=== PATIENT | male | born 1950 ===

== ENCOUNTER 2019-07-22 05:17 | Day surgery (SDC) | payer MEDICARE, MEDICAID ==
--- NOTE | 2019-07-21 16:00 | Pre-op HX & Phy Repo 2 SIG ---
DATE OF ADMISSION: 07/22/2019 DATE OF SURGERY: 07/22/2019 PREOPERATIVE DIAGNOSIS: Dislocated intraocular lens, right eye. BRIEF NOTE: This is the first [place] retinal surgery admission for the patient, who is a very nice 69-year-old gentleman, complained of poor vision in the right eye after cataract surgery. He had surgery done on the right eye in May of 2019. Subsequent to this, he noted the following vision, was found to have a dislocated intraocular lens. He is admitted for removal of the lens and placement of a secondary lens implant. PAST OCULAR HISTORY: Otherwise negative except for cataract surgery on the left eye in 2016. PAST MEDICAL HISTORY: Remarkable for diabetes for roughly 20 years. MEDICATIONS: He is on oral medications for his diabetes. ALLERGIES: He has no known allergies. PHYSICAL EXAMINATION: Best vision at the time of admission was 20/70 with correction in the right eye 20/30 in the left with pressures of 17 and 16. Confrontation terrazas were full. The anterior segment on the right showed aphakia with a dislocated lens. On the left, a posterior chamber lens was seen, well positioned in the capsular bag. Fundus examination of the right eye showed a dislocated lens located inferiorly, the macula appeared benign. The left fundus was benign. ASSESSMENT: 1. Dislocated intraocular lens, right eye. 2. Pseudophakia, left eye. PLAN: The plan is to perform a pars plana vitrectomy with retrieval and subsequent removal of the dislocated lens and later placement of a secondary lens implant. The risks and benefits of surgery were gone over with the patient with potential for potential for infection, hemorrhage, retinal detachment, remote possibility of loss of the eye. The risk of anesthesia was discussed. The patient understands and consents to the surgery, which will be performed on tomorrow morning. Elie Corado M.D. DR: BRIANA JOB#: [id number] CC:
[2019-07-22] VITALS (10 sets, daily range): BP systolic 119–151; BP diastolic 62–75
[~2019-07-22] VITALS: Ht 165.1 cm; Wt 70.3 kg
[~2019-07-22 05:17] MED LIST: Cyclopentolate 1% Opth Sol 2ml RIGHT EYE SCH; Flurbiprofen 0.03% Opth Sol 2.5ml RIGHT EYE SCH; Phenylephrine 2.5% Op 2ml Soln RIGHT EYE SCH; Pred Forte 1% Opth Susp 1ml RIGHT EYE SCH; Vigamox Opth Soln 3ml RIGHT EYE SCH
[2019-07-22] MEDS ORDERED: Vigamox Opth Soln 3ml ONE (05:28)
[2019-07-22] MEDS ORDERED: Phenylephrine 2.5% Op 2ml Soln ONE (05:28)
[2019-07-22] MEDS ORDERED: Flurbiprofen 0.03% Opth Sol 2.5ml ONE (05:28)
[2019-07-22] MEDS ORDERED: Cyclopentolate 1% Opth Sol 2ml ONE (05:28)
[2019-07-22] MEDS: Phenylephrine 2.5% Op 2ml Soln RIGHT EYE SCH ×3 (05:51→06:17)
[2019-07-22] MEDS: Cyclopentolate 1% Opth Sol 2ml RIGHT EYE SCH ×3 (05:51→06:17)
[2019-07-22] MEDS: Vigamox Opth Soln 3ml RIGHT EYE SCH ×3 (05:51→06:17)
[2019-07-22] MEDS: Flurbiprofen 0.03% Opth Sol 2.5ml RIGHT EYE SCH ×3 (05:51→06:17)
[2019-07-22 06:02] LABS: BASOPHILS % (AUTO) 1.2 % (0.0-2.0); EOSINOPHILS % (AUTO) 1.4 % (0.0-3.0); HEMATOCRIT 46.8 % (42.0-52.0); LYMPHOCYTES % (AUTO) 47.2 % (20.0-45.0); MEAN CORPUSCULAR VOLUME 88 FL (80-99); NEUTROPHILS % (AUTO) 42.2 % (45.0-75.0); PLATELET COUNT 247 K/UL (150-450); RED CELL DISTRIBUTION WIDTH 11.7 % (11.6-14.8); WHITE BLOOD COUNT 5.1 K/UL (4.8-10.8)
[2019-07-22] MEDS ORDERED: NOVOLIN R100 UNIT/1 SUBQ (06:04)
[2019-07-22 06:14] LABS: ANION GAP 8 mmol/L (5-15); BLOOD UREA NITROGEN 20 mg/dL (7-18); CALCIUM 9.4 MG/DL (8.5-10.1); CARBON DIOXIDE 28 MMOL/L (21-32); CHLORIDE 107 MMOL/L (98-107); CREATININE 0.8 MG/DL (0.55-1.30); POTASSIUM 3.6 MMOL/L (3.5-5.1); SODIUM 143 MMOL/L (136-145)
[2019-07-22] MEDS ORDERED: Polysporin Opth Oint 3.5gm ONE (07:06)
[2019-07-22] MEDS ORDERED: Lidocaine 2% MPF 5ml Vial INJ ONE (07:06)
[2019-07-22] MEDS ORDERED: EPINEPHrine 1mg/1ml Amp ONE ×2 (07:06→08:06)
[2019-07-22] MEDS ORDERED: Kenalog-40 1ml Vial ONE (07:06)
[2019-07-22] MEDS ORDERED: Povidone-Iodine 5% opth solution ONE (07:07)
[2019-07-22] MEDS ORDERED: Dexamethasone 4mg/ml vial ONE (07:07)
[2019-07-22] MEDS ORDERED: BSS 15ml BTL ONE (07:07)
[2019-07-22] MEDS ORDERED: BSS 500ml btl ONE ×2 (07:07→08:06)
[2019-07-22] MEDS ORDERED: Tetracaine 0.5% Opth 4ml Soln ONE (07:07)
[2019-07-22] MEDS ORDERED: Bupivacaine 0.75% 30ml vial INJ ONE (07:08)
[2019-07-22] MEDS ORDERED: Sodium Hyaluronate 10 mg/ml 0.85ml ONE (07:08)
[2019-07-22] MEDS ORDERED: Pred Forte 1% Opth Susp 1ml ONE (07:09)
[2019-07-22] MEDS ORDERED: Acetylcholine Injection (OR) ONE (07:23)
--- NOTE | 2019-07-22 07:26 | Anethesia Preoperative Eval ---
Anesthesia Pre-op PMH/ROS General Date of Evaluation: Jul 22, 2019 Anesthesiologist: ata ASA Score: ASA 2 Mallampati Score Class I : Soft palate, uvula, fauces, pillars visible Class II: Soft palate, uvula, fauces visible Class III: Soft palate, base of uvula visible Class IV: Only hard plate visible Mallampati Classification: Class II Diagnosis: dislocated R IOL Surgical Procedure: R eye PPV, removal of dislocated IOL, Implant secondary Anesthesia History: none Family History: no anesthesia problems Allergies: Coded Allergies: No Known Allergies (Unverified , 07/14/19) Medications: see eMAR Patient NPO?: Yes NPO Date: Jul 21, 2019 NPO Time: 20:00 Past Medical History Endocrine: Reports: DM PSxH Narrative: B cataract sx Anesthesia Pre-op Phys. Exam Physician Exam Last Vital Signs Date Time Temp Pulse Resp B/P (MAP) Pulse Ox O2 Delivery O2 Flow Rate FiO2 07/22/19 06:00 Room Air 07/22/19 05:58 97.8 66 18 151/75 98 Constitutional: NAD Cardiovascular: RRR Respiratory: CTA Gastrointestinal: S/NT/ND Airway Exam Mallampati Score: Class II MO: full Teeth: missing, broken Anesthesia Pre-op A/P Labs Hematology Test 07/22/19 05:45 White Blood Count 5.1 K/UL (4.8-10.8) Red Blood Count 5.30 M/UL (4.70-6.10) Hemoglobin 16.0 G/DL (14.2-18.0) Hematocrit 46.8 % (42.0-52.0) Mean Corpuscular Volume 88 FL (80-99) Mean Corpuscular Hemoglobin 30.1 PG (27.0-31.0) Mean Corpuscular Hemoglobin Concent 34.1 G/DL (32.0-36.0) Red Cell Distribution Width 11.7 % (11.6-14.8) Platelet Count 247 K/UL (150-450) Mean Platelet Volume 7.1 FL (6.5-10.1) Neutrophils (%) (Auto) 42.2 % (45.0-75.0) L Lymphocytes (%) (Auto) 47.2 % (20.0-45.0) H Monocytes (%) (Auto) 8.0 % (1.0-10.0) Eosinophils (%) (Auto) 1.4 % (0.0-3.0) Basophils (%) (Auto) 1.2 % (0.0-2.0) Chemistry Test 07/22/19 05:45 Sodium Level 143 MMOL/L (136-145) Potassium Level 3.6 MMOL/L (3.5-5.1) Chloride Level 107 MMOL/L (98-107) Carbon Dioxide Level 28 MMOL/L (21-32) Anion Gap 8 mmol/L (5-15) Blood Urea Nitrogen 20 mg/dL (7-18) H Creatinine 0.8 MG/DL (0.55-1.30) Estimat Glomerular Filtration Rate > 60 mL/min (>60) Glucose Level 105 MG/DL (74-106) Calcium Level 9.4 MG/DL (8.5-10.1) Accucheck 100 Studies Pre-op Studies: EKG - NSR Risk Assessment & Plan Assessment: ASA 2 Plan: GA Status Change Before Surgery: Kirsty Meyers M.D. Jul 22, 2019 07:26
[2019-07-22] MEDS ORDERED: LR 1000ml ONE (07:30)
[2019-07-22] MEDS ORDERED: Sterile Water Irrig 1000ml IRRIG ONE (07:30)
[2019-07-22] MEDS ORDERED: ePHEDrine 50mg/ml Inj ONE (07:30)
[2019-07-22] MEDS ORDERED: NS Irrig 1000ml ONE (07:30)
[2019-07-22] MEDS ORDERED: Midazolam 2mg/2ml Inj ONE ×2 (07:34→07:35)
[2019-07-22] MEDS ORDERED: fentaNYL 100 mcg/2 mL ONE (07:35)
[2019-07-22] MEDS ORDERED: Propofol 200mg/20ml IV ONE (07:35)
--- NOTE | 2019-07-22 07:46 | Pre-Procedure Note/Attestation ---
Pre-Procedure Note/Attestation Complete Prior to Procedure Planned Procedure: right Procedure Narrative: PPV, removal of dislocated IOL, placement of secondary IOL OD Indications for Procedure Pre-Operative Diagnosis: Dislocated IOL OD Attestation I attest that I discussed the nature of the procedure; its benefits; risks and complications; and alternatives (and the risks and benefits of such alternatives ), prior to the procedure, with the patient (or the patient's legal textile machinery sales representative). I attest that, if there was a reasonable possibility of needing a blood transfusion, the patient (or the patient's legal textile machinery sales representative) was given the [facility] standardized written summary, pursuant to the Godfrey Shelly Blood Safety Act ([place] Health and Safety Code # 1645, as amended). I attest that I re-evaluated the patient just prior to the surgery and that there has been no change in the patient's H&P, except as documented below: Elie Corado MD Jul 22, 2019 07:46
[2019-07-22] MEDS ORDERED: Pred Forte 1% Opth Susp 1ml RIGHT EYE ONE (08:00)
[2019-07-22] MEDS ORDERED: HYDROcodone/Acetamin 5/325 tab ORAL PRN (08:00)
[2019-07-22] MEDS ORDERED: LR 1000ml 1,000 ML IVLG SCH (08:09)
--- NOTE | 2019-07-22 08:13 | Immediate Post-Op Evaluation ---
Immediate Post-Op Evalulation Immediate Post-Op Evalulation Procedure: R eye PPV, removal IOL, secondary IOL Date of Evaluation: Jul 22, 2019 Time of Evaluation: 09:55 IV Fluids: 700ml Estimated Blood Loss: <5ml Blood Pressure Systolic: 119 Blood Pressure Diastolic: 63 Pulse Rate: 75 Respiratory Rate: 25 O2 Sat by Pulse Oximetry: 98 Temperature (Fahrenheit): 97.6 Nausea: No Vomiting: No Patient Status: reacts, patent, extubated Hydration Status: adequate Kirsty Flores M.D. Jul 22, 2019 08:13
[2019-07-22] MEDS ORDERED: fentaNYL 100 mcg/2 mL IV PRN (08:15)
[2019-07-22] MEDS ORDERED: Pilocarpine 1% Opth 15ml Soln BOTH EYES SCH (09:00)
--- NOTE | 2019-07-22 09:55 | 48 Hour Post Anesthesia Eval ---
Post Anesthesia Evaluation Procedure: R eye PPV, removal IOL, secondary IOL Date of Evaluation: Jul 22, 2019 Time of Evaluation: 10:40 Blood Pressure Systolic: 134 Pulse Rate: 74 Respiratory Rate: 20 Temperature (Fahrenheit): 98.3 O2 Sat by Pulse Oximetry: 99 Airway: patent Nausea: No Vomiting: No Hydration Status: adequate Mental Status/LOC: patient returned to baseline Follow-up care needed: ready to discharge Kirsty Flores M.D. Jul 22, 2019 09:55
--- NOTE | 2019-07-22 10:01 | Brief Operative Note ---
Immediate Post Operative Note Operative Note Chief Complaint: Loss of vision RIght eye Pre-op Diagnosis: Dislocated IOL OD Procedure: PPV, retrieval and removal of dislocated IOL, insertion of secondary AC IOL OD Post-op Diagnosis: same as pre-op Surgeon: Mickie Anesthesiologist: Effie Anesthesia: general Specimen: none Complications: none Condition: stable Fluids: Per Anesthesia Estimated Blood Loss: none Drains: none Implant(s) used?: Yes - 21.0 D ac IOL [id number] Elie Corado MD Jul 22, 2019 10:01
--- NOTE | 2019-07-22 11:15 | Pre-op HX & Phy Repo 2 SIG ---
DATE OF ADMISSION: 07/22/2019 PRESURGICAL INTERNAL MEDICINE HISTORY AND PHYSICAL REASON FOR EVALUATION: I was asked by Dr. Elie Corado to see this 69-year-old male, who is going for elective surgery on the right eye. The patient has dislocated intraocular lens in the right eye. The patient was evaluated and chart was reviewed at [facility] Outpatient Procedure Department. The patient is alert, well-developed, well-nourished, Syriac-speaking male. PAST MEDICAL HISTORY AND REVIEW OF SYSTEMS: Remarkable for insulin-dependent diabetes mellitus. Denies history of hypertension, chest pain, or palpitation. No history of stroke or seizures. Denies history of Parkinson disease. No history of thyroid problem. No anemia. Denies history of renal insufficiency. No GI bleeding, gastritis, or heartburn. No hepatitis. PAST SURGICAL HISTORY: Left eye cataract surgery. FAMILY HISTORY: Both parents , cause unknown. ALLERGIES: Not known. PRESENT MEDICATIONS: Include Humulin 10 units in the morning and 15 units in the evening. Last insulin dose 10 units at 4 a.m. this morning. HABITS: Denies history of smoke or alcohol habit or street drug. PHYSICAL EXAMINATION: GENERAL: Alert, well-developed, well-nourished male in his 60s. VITAL SIGNS: The patient's weight 165 pounds and 5 feet 5 inches tall. Blood pressure 157/75, temperature 97.8, heart rate is 66, respirations 18, and O2 saturation 98% on room air. SKIN: Clear and warm. No rashes. No ulcers. LYMPH NODES: Not enlarged. HEENT: Head is normocephalic and atraumatic. Ears, clear, no discharge. Eyes, full description per Dr. Elie Corado. Mouth, clear and moist, missed teeth on the bottom. NECK: Supple. No jugular venous distention. Carotids artery +2. Trachea midline. CHEST: No deformity or asymmetry. LUNGS: Clear to auscultation and percussion. HEART: Sinus rhythm. No ectopy. No murmur, S3, or S4. ABDOMEN: Soft, benign. Liver and spleen not enlarged. No rebound. EXTREMITIES: No peripheral edema. No deformity. No varicose vein or calf tenderness. GENITOURINARY TRACT: Normal for gender. CVA nontender. Denies dysuria. LABORATORY AND DIAGNOSTIC DATA: ECG, normal sinus rhythm, 68 per minute, normal ECG. Laboratory, fingerstick for blood sugar 108 mg/dL. Complete blood count, white blood cells 5.1, hemoglobin 16.0, and hematocrit 46.8. Chemistry, sodium 143, potassium 3.6, chloride 107, BUN 20, creatinine 0.8, estimated GFR more than 60, blood sugar 105, and calcium 9.4. The patient did not eat or drink from 8:30 p.m. last night. IMPRESSION: 1. Dislocated intraocular lens in the right eye. 2. Insulin-dependent diabetes mellitus, controlled. PLAN: Pars plana vitrectomy and removal of dislocated intraocular lens in the right eye. CONCLUSION: The patient is an 89-year-old male with history of 10 years of insulin-dependent diabetes mellitus. Blood sugar controlled. EKG, normal sinus rhythm, normal EKG. Lab work available of CBC and chemistry in normal limit. The patient's systolic blood pressure is slightly elevated, might be stage 1 hypertension. The patient did not eat or drink from last night 8 p.m. The patient's condition optimized for surgery. Thank you very much, Dr. Corado, for privilege to participate in presurgical care of this interesting patient. Ozzy Camargo M.D. DR: Mike JOB#: [id number] CC:
--- NOTE | 2019-07-22 17:30 | Operative Note - Dictated ---
DATE OF OPERATION: 07/22/2019 PREOPERATIVE DIAGNOSIS: Dislocated intraocular lens, right eye. POSTOPERATIVE DIAGNOSIS: Dislocated intraocular lens, right eye. PROCEDURES: 1. Pars plana vitrectomy. 2. Retrieval and removal of dislocated intraocular lens. 3. Insertion of secondary anterior chamber intra-ocular lens, right eye. SURGEON: Elie Corado M.D. READY TO WEAR DEPARTMENT MANAGER: None. ANESTHESIA: LMA general. JUSTIFICATION FOR SURGERY: This 69-year-old gentleman underwent cataract surgery several weeks ago, but subsequently was found to have dislocated the intra-ocular lens. He was admitted for repair. BRIEF NOTE: The patient was brought to the operating room and placed on operating room table in supine position. After a time-out was performed and agreed upon by the staff, general LMA anesthesia was induced by Dr. Kirsty Flores. After the anesthetic had taken effect, a retrobulbar block of 3 mL standard solution was given to limit the need for intraoperative anesthetic and to decrease postoperative pain. The patient was then prepped and draped in normal manner. A lid speculum was inserted into the right eye. A 4 o'clock hour peritomy was cut at from 11:30 to 2:30 positions. Bleeding was controlled with gentle cautery. Using a 23-gauge trocar system, cannulas were placed in all except infranasal quadrant. Infusion secured inferotemporally. Vitrectomy was begun at the iris plane removing residual capsule and debris. Using Kenalog to aamir the vitreous, a complete vitrectomy was performed. The intra-ocular lens was noted to be suspended in vitreous with, but as the vitrectomy proceeded it became free and was noted to float posteriorly over the optic nerve. Vitrectomy was continued leaving a small vitreous skirt. Scleral depression was done. No peripheral breaks, tears, or detachments were seen. At this juncture, using a posterior viewing lens, the intra-ocular lens was engaged on one of the haptics and brought through the pupil and rotated into the anterior chamber without issues. At this juncture, preparation was made for a lens exchange. A 69 Aurora blade was used to form a 6 mm vertical incision from the 11:30 position to the 2:30 position. The anterior chamber was then entered with a keratome. Miochol was used to shrink the pupil and Healon was used to protect the corneal endothelium. The wound was enlarged and the intraocular lens removed. At this juncture, the amquj-qu-fzeew distance was measured and found to be roughly 11 to 11.5 mm, so a 12.5 mm diameter intra-ocular lens model [id number] of 21 diopters in power was chosen. A lens glide was inserted and the lens placed into the anterior chamber. It was rotated so that it would eventually be at the 10 to 4 o'clock position. The pupil was nicely rounded with additional Miochol and the Healon was evacuated from the eye. Nylon sutures, 10-0 were placed a total of 7 to completely secure the wound. All knots were rotated. The vitrector was then introduced into the eye Supratemporally and at the 1 o'clock position a peripheral iridotomy was cut. At this juncture, the cannulas were removed from the eye superiorly and the sclerotomy was closed with 8-0 Vicryl. Conjunctiva and tenons were pulled up and secured with 6-0 plain catgut, rapid absorbing. The remaining infusion line was then removed and the sclerotomy also closed with 8-0 Vicryl. Subconjunctival Decadron and gentamicin were then injected and topical moxifloxacin drops, prednisolone acetate drops, pilocarpine 1% drops, and Maxitrol ointment were instilled. The eye was patched and shielded and the patient was taken to Recovery in excellent condition. There were no complications. Elie Corado M.D. DR: KANA JOB#: [id number] CC:
== END 2019-07-22 11:10 | disposition home or self-care (01) ==
LOC: SUR 05:17
DX: T85.22XA Displacement of intraocular lens, initial encounter (principal); E11.9 Type 2 diabetes mellitus without complications; Z96.1 Presence of intraocular lens; Z79.4 Long term (current) use of insulin; X58.XXXA Exposure to other specified factors, initial encounter; Y92.9 Unspecified place or not applicable
CPT/HCPCS: 36415; 66852; 66986; 80048; 82962; 85025; 93005; J0171; J1100; J2250; J2704; J3301; J3470; J3490; V2632; 94003; 94150